=== PATIENT | female | born 1970 | race African-American/Black ===

== ENCOUNTER 2016-12-04 08:22 | Outpatient (CLI) | payer OTHER ==
--- NOTE | 2016-12-04 15:48 | Mammography Report ---
BILATERAL DIGITAL SCREENING MAMMOGRAM with CAD : 12/04/16 08:22:00 CLINICAL: Routine screening. COMPARISON:None. A previous mammogram from [place] is not available. FINDINGS: The breasts are heterogeneously dense, which may obscure small masses.A small group of left upper outer calcifications have benign morphology which includes layering on the MLO view. No mass, architectural distortion or suspicious calcifications. IMPRESSION: No mammographic evidence of malignancy. BI-RADS CATEGORY: 2 -- Benign RECOMMENDATION: Routine mammographic screening in one year. COMMENT: Patient follow-up letters are generated by our [employer] application.
== END 2016-12-04 08:23 | disposition home or self-care (01) ==
LOC: SPVWC 08:22
DX: Z12.31 Encounter for screening mammogram for malignant neoplasm of breast (principal)
CPT/HCPCS: 77067; G0202